=== PATIENT | female | born 1995 | race Caucasian/White ===

== ENCOUNTER 2020-10-09 21:24 | Emergency (ER) | payer OTHER, SELFPAY ==
[2020-10-09 21:52] VITALS: BP 123/84; PULSE 81; RESP 16; TEMP 36.4; O2SAT 98
--- NOTE | 2020-10-09 23:21 | ED.GENADULT ---
HPI - General Adult General Chief complaint: Ear Stated complaint: believes left ear drum burst Time Seen by Provider: 10/09/20 22:51 Source: patient History of Present Illness HPI narrative: Patient is a 25 y/o female complaining left ear pain for 1-2 weeks. She states that she was in [place] swimming 2 weeks ago and developed ear pain shortly after. She went to a [facility] clinic and got Rx for Augmentin and Prednisone for middle ear infection. However, her symptoms have not improved. She has not finished her medications yet. She felt a pop a few days ago and now she has decreased hearing on left side. Related Data Allergies Allergy/AdvReac Type Severity Reaction Status Date / Time No Known Allergies Allergy Verified 10/09/20 21:56 Review of Systems Review of Systems: All systems reviewed & are unremarkable except as noted in HPI and below Constitutional: Constitutional: Denies fever(s) ENT: Reports otalgia and Reports hearing loss Respiratory: Respiratory: Denies cough Exam Const: General: no acute distress and well developed Orientation/consciousness: oriented to person, oriented to place, oriented to time and patient oriented x3 HENMT: Head: normocephalic Ears: external ears normal, Abnormal EAC present erythema on the left and other (some fluid behind left TM suggesting effusion) General nose exam: Normal external nose present Eyes: General: appearance normal, both eyes and all related structures Conjunctivae: conjunctivae normal Skin: General skin exam: normal color and turgor normal Extrem: General: normal to inspection and full ROM Course Consultations Consultation #1: Discussed with Dr. Ramírez, who agrees to follow up with the patient in 24-48 hours. Date: 10/09/20 Time: 23:27 Vital Signs Vital signs: Vital Signs Temperature 36.4 C L 10/09/20 21:52 Pulse Rate 81 10/09/20 21:52 Respiratory Rate 16 10/09/20 21:52 Blood Pressure 123/84 10/09/20 21:52 Pulse Oximetry 98 10/09/20 21:52 Temperature 36.4 C L 10/09/20 21:52 Pulse Rate 81 10/09/20 21:52 Respiratory Rate 16 10/09/20 21:52 Blood Pressure 123/84 10/09/20 21:52 Pulse Oximetry 98 10/09/20 21:52 Medical Decision Making Vital Signs Vital Signs: Vital Signs Temperature 36.4 C L 10/09/20 21:52 Pulse Rate 81 10/09/20 21:52 Respiratory Rate 16 10/09/20 21:52 Blood Pressure 123/84 10/09/20 21:52 Pulse Oximetry 98 10/09/20 21:52 Temperature 36.4 C L 10/09/20 21:52 Pulse Rate 81 10/09/20 21:52 Respiratory Rate 16 10/09/20 21:52 Blood Pressure 123/84 10/09/20 21:52 Pulse Oximetry 98 10/09/20 21:52 Discharge Plan Discharge Clinical Impression: Swimmer's ear of left side, Acute otitis media with effusion of left ear Patient Disposition: Home, Self-Care Condition: Stable Instructions: Antibiotic Form Prescriptions: New volipthd-rmosqhxmt-HM 3.5-10,000-1 mg/mL-unit/mL-% drops,suspension 4 drp EACH EAR Q6H Qty: 10 RF: 0 Follow-up/Referrals: Tejinder Ramírez MD [Physician] - 2 Days PHYSICIAN,AG[employer]ICULT[employer]QUIPMENT MECHANIC [Primary Care Provider] -
== END 2020-10-09 23:41 | disposition home or self-care (01) ==
PROVIDERS: Emergency Provider Emergency Medicine
DX: H60.332 Swimmer's ear, left ear (principal); H65.192 Other acute nonsuppurative otitis media, left ear
CPT/HCPCS: 99283

== ENCOUNTER 2021-04-18 15:59 | Emergency (ER) | payer OTHER, SELFPAY ==
[2021-04-18 16:06] VITALS: BP 121/67; PULSE 104; RESP 16; TEMP 36.6; O2SAT 100
--- NOTE | 2021-04-18 16:23 | ED.URI ---
HPI - URI/Sore Throat General Chief Complaint: Upper Respiratory Infection Stated Complaint: Body aches Time Seen by Provider: 04/18/21 16:24 Source: patient and RN notes reviewed Mode of arrival: ambulatory Limitations: no limitations History of Present Illness HPI Narrative: 25-year-old female who is in second trimester presents with concern for sore throat, body aches, nasal congestion. She denies taking any clzg-wju-csorizg medications. She has not been vaccinated for Covid. She denies any known sick contacts. She denies shortness of breath, fever MD elicited complaint: sore throat and nasal congestion Related Data Allergies Allergy/AdvReac Type Severity Reaction Status Date / Time ibuprofen Allergy Unknown unknown Verified 04/18/21 16:31 Sulfa (Sulfonamide Allergy Unknown unknown Verified 04/18/21 16:31 Antibiotics) Review of Systems Review of Systems: CONSTITUTIONAL: Denies malaise, chills, sweats, or fever. EYES: Denies visual changes, redness, or discharge. ENT: Reports rhinorrhea, congestion, sore throat. Denies sinus pain, otalgia CARDIOVASCULAR: Denies chest pain, palpitations, or edema. RESPIRATORY: Denies cough. Denies dyspnea. GASTROINTESTINAL: Denies abdominal pain, nausea, vomiting, diarrhea SKIN: Denies rash or itching. MUSCULOSKELETAL: Reports myalgia. NEUROLOGIC: Reports headache. All systems reviewed & are unremarkable except as noted in HPI and below PMFSH Social History Social History (Updated 10/12/20 @ 10:35 by Jackie Castañeda MA) Smoking status: Never smoker Alcohol intake: never Substance use: never Comments At time of signature, agree with nursing past medical, surgical, social and family history. There is no relevant family history pertinent to the presenting complaint Exam Narrative: GENERAL: Well-appearing, well-nourished, and in no acute distress. HEAD: Normocephalic EYES: PERRLA, conjunctivae clear ENT: Nares clear, clear discharge. Mucous membranes moist. TM pearly elena with sharp light reflex bilaterally; no tragal tenderness. Oropharynx erythematous without lesions. Tonsils not enlarged and without exudate, no drooling, no hoarseness, no trismus, uvula midline. NECK: Supple. No lymphadenopathy CHEST: Clear to auscultation, breath sounds equal. No wheezing, rhonchi, rales, or stridor. No respiratory distress, speaks in full sentences. HEART: Regular rate and rhythm. No murmur heard. SKIN: Warm, dry, no rash. NEURO: Alert and oriented x3. PSYCH: Normal mood and affect Course Course Emergency Course: Patient is aware of diagnosis, understands and agrees to treatment plan. Anticipatory guidance given. Patient agrees to follow-up as directed and is aware of reasons to seek care at the emergency department. Portions of this record may have been created with voice recognition software Level of Care: Express Care Visit Vital Signs Vital signs: Vital Signs Temperature 98 F 04/18/21 16:06 Pulse Rate 104 H 04/18/21 16:06 Respiratory Rate 16 04/18/21 16:06 Blood Pressure 121/67 04/18/21 16:06 Pulse Oximetry 100 04/18/21 16:06 Temperature 98 F 04/18/21 16:06 Pulse Rate 104 H 04/18/21 16:06 Respiratory Rate 16 04/18/21 16:06 Blood Pressure 121/67 04/18/21 16:06 Pulse Oximetry 100 04/18/21 16:06 Reviewed. MDM - URI/Sore Throat MDM Narrative Medical decision making narrative: Differential diagnosis considered: Miranda virus, strep pharyngitis, allergic rhinitis, upper respiratory tract infection, sinusitis, rhinosinusitis, nasopharyngitis. viral pharyngitis, otitis media, otitis externa, pneumonia, bronchitis, viral cough syndrome, viral syndrome, and influenza. Exam findings show no acute concerns or changes; patient is non-toxic appearing and is in no distress. Patient is appropriate for outpatient treatment and follow-up. Lab Data Attestation: I reviewed the patient's lab results. Critical Care Time Critical Care Time Critical
[2021-04-19 14:36] LABS: SARS-CoV-2 RNA PCR Negative
== END 2021-04-18 16:56 | disposition home or self-care (01) ==
PROVIDERS: Emergency Provider Nurse Practitioner
DX: O99.512 Diseases of the respiratory system complicating pregnancy, second trimester (principal); Z3A.00 Weeks of gestation of pregnancy not specified; J06.9 Acute upper respiratory infection, unspecified; Z20.822 Contact with and (suspected) exposure to COVID-19
CPT/HCPCS: 87081; 87426; 87880; 99213; C9803; G0463; U0003; U0005

== ENCOUNTER 2021-07-25 22:09 | Inpatient (IN) | payer OTHER, SELFPAY ==
[2021-07-25] VITALS (18 sets, daily range): BP systolic 110–137; BP diastolic 60–88; PULSE 80–113; TEMP 37; O2SAT 98–100; BMI 36.6
--- OUTSIDE RECORDS SUMMARY | 2021-07-25 22:31 | XMS_ITS ---
:1995 Author Care Team Providers Name Role Phone Freedom Miranda Primary Care Provider Unavailable Allergies Code Code Name Reaction Severity Status Onset System 5640 RxNorm Ibuprofen Other Moderate Active ? 28139 RxNorm Sulfabenzamide Hives Moderate Active ? Sulfa (Sulfonamide ? ? Deactivated ? Antibiotics) Medications Name Status Start Date Stop Date ? ? csoazvhwhp-feaikzltepcfz-unhiuohb 50 Completed ? 04/18/2021 mg-300 mg-40 mg capsule Active ? Not available Tums Active ? Not available Problems Name Status Onset Date Source ? Active 01/25/2021 ? Procedures Date Name Performed by ? ? Tonsilectomy/adenoids Information not av ailable 12/28/2020 US, Obstetric, Transvaginal [address] [place] [address] ([address]) 01/25/2021 US, Obstetric, Nuchal Translucency Todd [address] [place] [address] ([address]) 03/21/2021 US, Obstetric, 2Nd or 3Rd Trimester Manisha moore [address] [place] [address] ([address]) 03/21/2021 US, Obstetric, Transvagi
--- OUTSIDE RECORDS SUMMARY | 2021-07-25 22:31 | XMS_ITS | Encounter Summary ---
:1995 Author Reason for Visit OB visit 31w5d Assessment and Plan 1. Routine care Discussion Note: None recorded.Patient educational handouts: No information available. Plan of Care Reminders Provider Appointments Induction Juan Guy 07/30/2021 MD Ruth 7:00AM Lab None ? ? recorded. Referral None ? ? recorded. Procedures None ? ? recorded. Surgeries None ? ? recorded. Imaging None ? ? recorded. Medications Name Start Date ? ? ? Tums ? Medications Administered None recorded. Vitals Height Weight BMI Blood Pressure 5 ft 2 in 189 lbs 34.6 kg/m2 114/76 mm[Hg] Results Lab Results None recorded. Allergies Code Code System Name Reaction Severity Onset 5640 RxNorm Ibuprofen Other Moderate ? 75756 RxNorm Sulfabenzamide Hives Moderate ? Problems Name Status Onset Date Source ? Active 01/25/2021 ? Procedures Date Name Performed by ?
--- OUTSIDE RECORDS SUMMARY | 2021-07-25 22:31 | XMS_ITS | Encounter Summary ---
:1995 Author Reason for Visit None recorded. Assessment and Plan 1. Disease of the respiratory sy stem complicating , childbirth and/or the puerperium ? US, obstetric, follow-up Discussion Note: None recorded.Patient educational handouts: No information available. Plan of Care Reminders Provider Appointments Induction Juan Guy 07/30/2021 MD Ruth 7:00AM Lab None ? ? recorded. Referral None ? ? recorded. Procedures None ? ? recorded. Surgeries None ? ? recorded. Imaging [facility] Obstetric, Follow-up 05/23/2021 Medications Name Start Date ? ? ? Tums ? Medications Administered None recorded. Vitals None recorded. Results Lab Results None recorded. Allergies Code Code System Name Reaction Severity Onset 5640 RxNorm Ibuprofen Other Moderate ? 04566 RxNorm Sulfabenzamide Hives Moderate ? Problems Name Status Onset Date Source ? Active 01/25/2021 ? Procedures
--- OUTSIDE RECORDS SUMMARY | 2021-07-25 22:31 | XMS_ITS | Encounter Summary ---
:1995 Author Reason for Visit OB visit Assessment and Plan Assessment Note Patient is ___weeks . Discu ssed plan. 1. Routine care Discussion Note: None recorded.Patient [...] BMI Blood Pressure 5 ft 2 in 199 lbs 36.4 kg/m2 116/80 mm[Hg] Results Lab Results None recorded. Allergies Code Code System Name Reaction Severity Onset 5640 RxNorm Ibuprofen Other Moderate ? 54822 RxNorm Sulfabenzamide Hives Moderate ? Problems Name Status Onset Date Source ? Active 01/25/2021
--- OUTSIDE RECORDS SUMMARY | 2021-07-25 22:31 | XMS_ITS | Encounter Summary ---
:1995 Author Reason for Visit OB visit 33w3d Assessment and Plan 1. Routine care Discussion [...] BMI Blood Pressure 5 ft 2 in 194 lbs 35.5 kg/m2 110/74 mm[Hg] Results Lab Results None recorded. Allergies Code Code System Name Reaction Severity Onset 5640 RxNorm Ibuprofen Other Moderate ? 26805 RxNorm Sulfabenzamide Hives Moderate ? Problems Name Status Onset Date Source ? Active 01/25/2021 ? Procedures Date Name Performed by ?
--- OUTSIDE RECORDS SUMMARY | 2021-07-25 22:31 | XMS_ITS | Encounter Summary ---
[...] ft 2 in 199 lbs 36.4 kg/m2 125/87 mm[Hg] Results Lab Results None recorded. Allergies Code Code System Name Reaction Severity Onset 5640 RxNorm Ibuprofen Other Moderate ? 40879 RxNorm Sulfabenzamide Hives Moderate ? Problems Name Status Onset Date Source ? Active 01/25/2021
--- OUTSIDE RECORDS SUMMARY | 2021-07-25 22:31 | XMS_ITS | Encounter Summary ---
[...] BMI Blood Pressure 5 ft 2 in 203 lbs 37.1 kg/m2 130/88 mm[Hg] Results Lab Results None recorded. Allergies Code Code System Name Reaction Severity Onset 5640 RxNorm Ibuprofen Other Moderate ? 67727 RxNorm Sulfabenzamide Hives Moderate ? Problems Name Status Onset Date Source ? Active
--- OUTSIDE RECORDS SUMMARY | 2021-07-25 22:31 | XMS_ITS | Encounter Summary ---
:1995 Author Reason for Visit None recorded. Assessment and Plan 1. Pre-existing maternal disease complicating ? US, obstetric, follow-up Discussion Note: None recorded.Patient educational handouts: No information available. Plan of Care Reminders Provider Appointments Induction Juan Guy 07/30/2021 MD Ruth 7:00AM Lab None ? ? recorded. Referral None ? ? recorded. Procedures None ? ? recorded. Surgeries None ? ? recorded. Imaging [facility] Obstetric, Follow-up 06/19/2021 Medications Name Start Date ? ? ? Tums ? Medications Administered None recorded. Vitals None recorded. Results Lab Results None recorded. Allergies Code Code System Name Reaction Severity Onset 5640 RxNorm Ibuprofen Other Moderate ? 74607 RxNorm Sulfabenzamide Hives Moderate ? Problems Name Status Onset Date Source ? Active 01/25/2021 ? Procedures Date Name Performed by ?
--- OUTSIDE RECORDS SUMMARY | 2021-07-25 22:31 | XMS_ITS | Encounter Summary ---
:1995 Author Reason for Visit OB visit 29w4d Assessment and Plan 1. Routine care Discussion [...] BMI Blood Pressure 5 ft 2 in 187 lbs 34.2 kg/m2 114/75 mm[Hg] Results Lab Results None recorded. Allergies Code Code System Name Reaction Severity Onset 5640 RxNorm Ibuprofen Other Moderate ? 67721 RxNorm Sulfabenzamide Hives Moderate ? Problems Name Status Onset Date Source ? Active 01/25/2021 ? Procedures Date Name Performed by ?
[2021-07-25] MEDS: LACTATED RINGERS 1,000 ML 125 ML IV CONT ×2 (23:08→23:38)
[2021-07-25 23:14] LABS: Basophils Percent Auto 0.3 % (0.2-1.2); Eosinophils Absolute Auto 0.1 K/mm3 (0-0.3); Eosinophils Percent Auto 0.7 % (0-4.4); Hematocrit 37.5 % (37.0-47.0); Hemoglobin 12.7 g/dL (12.0-15.0); Immature Granulocyte Absolute 0.12 K/mm3 (0.00-0.031); Immature Granulocyte Percent A 0.9 % (0-0.5); Lymphocytes Absolute Auto 1.97 K/mm3 (0.9-3.2); Lymphocytes Percent Auto 15.2 % (18.3-44.2); Mean Corpuscular HGB Conc 33.9 g/dl (32-36); Mean Corpuscular Hemoglobin 30.5 pg (26-34); Mean Corpuscular Volume 90.1 fl (80-100); Mean Platelet Volume 11.3 fl (7.4-10.4); Monocytes Absolute Auto 1.1 K/mm3 (0.1-0.6); Monocytes Percent Auto 8.2 % (2.6-8.5); Neutrophils Absolute Auto 9.7 K/mm3 (1.3-6.7); Neutrophils Percent Auto 74.7 % (45.5-73.1); Platelet Count Result 214 k/mm3 (150-375); Red Blood Count 4.16 M/mm3 (4.2-5.4); Red Cell Distribution Width 15.2 % (11.5-14.5)
--- NOTE | 2021-07-25 23:30 | P.PNAN_ITS ---
Anes - Eval Pre Procedure Procedure: labor epidural Date/Time: 07/25/21 23:30 Preop Diagnosis: pain during labor Pre Op Diagnosis: Leaking fluid Patient Data Age: 26 Gender: F Height: 1.57 m Weight: 91 kg Last Vital Signs Temp 37.0 C 07/25/21 23:08 Pulse 97 07/25/21 23:16 BP 114/86 07/25/21 23:16 Allergies Allergy/AdvReac Type Severity Reaction Status Date / Time ibuprofen Allergy Unknown unknown Verified 04/18/21 16:31 Sulfa (Sulfonamide Allergy Unknown Hives Verified 07/09/21 13:37 Antibiotics) Laboratory Tests 07/25/21 07/25/21 23:01 23:01 WBC 13.0 K/mm3 H K/mm3 (4.5-10.0) RBC 4.16 M/mm3 L M/mm3 (4.2-5.4) Hgb 12.7 g/dL g/dL (12.0-15.0) Hct 37.5 % % (37.0-47.0) MCV 90.1 fl fl (80-100) MCH 30.5 pg pg (26-34) MCHC 33.9 g/dl g/dl (32-36) RDW 15.2 % H % (11.5-14.5) Plt Count 214 k/mm3 k/mm3 (150-375) MPV 11.3 fl H fl (7.4-10.4) Immature Gran % (Auto) 0.9 % H % (0-0.5) Neut % (Auto) 74.7 % H % (45.5-73.1) Lymph % (Auto) 15.2 % L % (18.3-44.2) [place] % (Auto) 8.2 % % (2.6-8.5) Eos % (Auto) 0.7 % % (0-4.4) Baso % (Auto) 0.3 % % (0.2-1.2) Lymph # (Auto) 1.97 K/mm3 K/mm3 (0.9-3.2) [place] # (Auto) 1.1 K/mm3 H K/mm3 (0.1-0.6) Eos # (Auto) 0.1 K/mm3 K/mm3 (0-0.3) Baso # (Auto) 0.0 K/mm3 K/mm3 (0.0-0.1) Abs Immat Gran (auto) 0.12 K/mm3 H K/mm3 (0.00-0.031) Absolute Neuts (auto) 9.7 K/mm3 H K/mm3 (1.3-6.7) Absolute Nucleated RBC 0.0 K/mm3 K/mm3 (0.0-0.012) Nucleated RBC % 0.0 % % (0.0-0.2) RPR Pending Patient hx anesthesia problems: none Family hx anesthesia problems: none Results Review: All pre-operative results and documents have been reviewed as part of the pre-operative evaluation. [facility] Past Medical History Medical History (Updated 07/25/21 @ 23:31 by Cassie Bergeron CRNA) IUP (intrauterine ), incidental Family History Family History (Updated 07/09/21 @ 13:37 by Brown Escobar RN) Mother Kidney stones Hypertension Social History Social History (Updated 10/12/20 @ 10:35 by Jackie Castañeda MA) Smoking status: Never smoker Alcohol intake: never Substance use: never Spiritual care concerns: No Exam Day of Procedure 07/25/21 23:30
[2021-07-26] VITALS (66 sets, daily range): BP systolic 94–159; BP diastolic 53–106; PULSE 25–249; RESP 16–18; TEMP 36.6–37; O2SAT 85–100
[2021-07-26] MEDS: ONDANSETRON INJ 4 MG/2 ML VIAL IV PUSH (00:59)
[2021-07-26] MEDS: OXYTOCIN 30 UNITS/NS 500 ML 30 UNITS/500 ML BAG 999 UNITS IV CONT (02:34)
--- NOTE | 2021-07-26 03:29 | P.HP_ITS ---
Obstetrics - Admit Note Admission Note: record reviewed. No pertinent additions to the history and/or any subsequent changes in the physical findings that are not consistent with the expected course of the were found. admitted to LD for SROM Additions to the history and/or subsequent changes in the physical findings foll ow. None.
--- NOTE | 2021-07-26 03:30 | PM.OBPRVD ---
OB - Delivery Note Procedure Delivery date: 07/26/21 Procedure: vaginal delivery Delivery augmentation: Pitocin Delivery monitor: External FHT and External Uterine Route of delivery: Laceration Description: None Specimen: Yes Quantitative Blood Loss (ml): 84 Anesthesia type: Epidural Disposition: Floor [place] Baby Date of : 07/26/21 Time of : 03:11 Weeks of gestation at delivery: 38 gender: Male Weight (pounds): 6 Weight (ounces): 15 presentation: vertex position: Left Occiput Anterior Placenta delivery description: Spontaneous Cord Vessel Description: 3 Vessels, Clamped/Cut and Delayed Cord Clamping score one minute: 9 score five minutes: 9 Narrative: mother and baby in stable condition, placenta bilobed sent for pathology
--- NOTE | 2021-07-26 04:30 | LDADM ---
This patient, Stefan Vogt, was admitted to Labor/Delivery/Recovery 106 on 07/25/21 at 22:09. Plans for labor, pain management and were discussed with patient. Patient/family oriented to hospital policies and general routines including ID bracelet, bed and alarms, visiting hours, pain management, procedures, bathroom and other care routines, personal items, smoking policy, room service/diet and guest tray routines, security routines, and visiting hours. Patient/Family are encouraged to report perceived risks to care and to ask questions if they do not understand what they are told or what they should do. See OBIX for further documentation.
[2021-07-26] MEDS: WITCH HAZEL 40 PADS 1 PAD TOPICAL (05:26)
[2021-07-26] MEDS: BENZOCAINE 20% AER SPR (*SP) 56 GM CAN 1 SPRAY TOPICAL (05:26)
--- NOTE | 2021-07-26 05:37 | OBPPTRN ---
Patient transferred to post room #290 via wheelchair. Support person present. Oriented to unit, room, information board, rooming in, admission packet and security measures. Patient verbalizes understanding.
[2021-07-26] MEDS: ACETAMINOPHEN 325 MG TABLET 650 MG PO ×3 (05:43→20:04)
--- NOTE | 2021-07-26 08:34 | PM.OBPNVD ---
OB - PN: Subj Subjective Date/time seen: 07/26/21 08:34 Patient comments: no complaints, pain well controlled, incisional pain, tolerating diet and flatus present OB - PN: Obj Data Labs CBC & Chem 7: 07/25/21 23:01 Labs: Laboratory Results - last 24 hr 07/25/21 07/25/21 23:01 23:01 WBC 13.0 H RBC 4.16 L Hgb 12.7 Hct 37.5 MCV 90.1 MCH 30.5 MCHC 33.9 RDW 15.2 H Plt Count 214 MPV 11.3 H Immature Gran % (Auto) 0.9 H Neut % (Auto) 74.7 H Lymph % (Auto) 15.2 L [place] % (Auto) 8.2 Eos % (Auto) 0.7 Baso % (Auto) 0.3 Lymph # (Auto) 1.97 [place] # (Auto) 1.1 H Eos # (Auto) 0.1 Baso # (Auto) 0.0 Abs Immat Gran (auto) 0.12 H Absolute Neuts (auto) 9.7 H Absolute Nucleated RBC 0.0 Nucleated RBC % 0.0 Blood Type B Positive Antibody Screen Negative OB - PN A/P Plan day: 2 Plan: routine care Comments: POD#2 LTCS - no problems, Time Spent With Patient Time: Total time spent is greater than 50% in coordination of care (as documented) at patient's floor/unit and/or counseling patient: Exam Const: General: comfortable, no acute distress and alert Resp: Effort & Inspection: normal respiratory effort Auscultation: no crackles, no rales and no rhonchi Cardio: Rate: regular rate Heart sounds: no click, no murmurs and no rubs GI: Inspection: non-distended GI Palp: No Tenderness to palpation present (GI) Auscultation: normal bowel sounds Other: Incision - CDI Extrem: General: normal to inspection, no pedal edema and no calf tenderness
[2021-07-26] MEDS: MULTIVIT/MIN/PREN/FOL AC/IRON TABLET 1 TAB PO (08:56)
[2021-07-26] MEDS: LANOLIN (LANSINOH) 7.5 GM CREAM 1 APPLIC TOPICAL (08:56)
[2021-07-26] MEDS: DOCUSATE SODIUM 100 MG CAPSULE PO ×2 (08:56→17:35)
--- NOTE | 2021-07-26 09:55 | PC.NURSE ---
[id number] Introductions were made, then consulted with patient to assess needs related to . Mother led the conversation with her experience feeding her so far. Mother works well with her with encouragement. Encouraged understanding of the benefits of skin to skin (unwrapping infant and placing vertically on her chest), responsive feeding and how to watch for early feeding signs, frequency of feeding on demand about every 8-12 times in 24 hours (every 2-3 hours), milk production, duration of feeding, signs of adequate intake/output and how to record on the feeding sheet. Reviewed positioning and ear, shoulder, hip alignment, supporting the breast, asymmetrical latch (off-center), and leading with the chin with a big open side gape. Infant latched optimally to the right breast in football position. Education given to mother of how to visualize suck/swallow ratios and drinking at the breast. Infant was able to maintain latch without discomfort to mother. Nipple care reviewed with optimal latch and good positioning. Reviewed good handwashing when or touching the breast/nipples to prevent infection. Resources used to facilitate learning were used with the visual handouts/ tool/mom and baby guide. Mother voiced understanding of responsive feedings, stimulating with skin to skin, hand expressed colostrum, touch, talking to infant to encourage if it has been 2 -3 hours since the start of the last , to call if does not latch or there is discomfort with . Reported to the primary RN.
--- NOTE | 2021-07-26 11:01 | PC.NURSE ---
[id number] Mother works well with her with encouragement. Reviewed positioning and alignment, supporting breast, off-centered (asymmetrical latch) and leading with the chin with big open wide gape. latched optimally to the right, then breast in football position. Education given to mother of how to visualize suck/swallow ratios and drinking at the breast. Infant was able to maintain latch without discomfort to mother. Nipple care reviewed with optimal latch and good positioning, comfort, healing with warm, wet washcloth to rinse breast, then leave open to air-dry, colostrum may be left on nipples to dry but have clean hands when touching the nipple/breast as needed. Resources used to facilitate learning were used from the visual handout/ tool/mom and baby guide. Mother voiced understanding of the education shared, calling for assistance if the does not latch or if there is discomfort with . Reported to the primary RN.
[2021-07-26 11:06] LABS: Rapid Plasma Reagin Non-Reactive (NonReactive)
--- NOTE | 2021-07-26 15:40 | PC.NURSE ---
1400 - Consulted with patient to assess needs related to . Mother led conversation with her experience with feeding baby so far. Mother works well with her with encouragement and is skin to skin with her . Mother is concerned with milk supply. Reviewed signs of getting good intake with output, jaundice level, and weight. Nipple care reviewed with optimal latch and good positioning, comfort, healing with warm, wet washcloth to rinse breast, then leave open to air-dry, colostrum may be left on nipples to dry but have clean hands when touching the nipple/breast as needed. Mother states she may want to supplement to see how much milk she is getting. Reassured mother at this time to breastfeed 8-12 times in 24 hours with good positioning and optimal latching. Resources used to facilitate learning were used from the mom and baby guide. Mother voiced understanding of the education shared, calling for assistance if the infant does not latch or if there is discomfort with . Reported to the primary RN.
--- NOTE | 2021-07-26 17:30 | PC.NURSE ---
Breast pump provided due to mother request. Instructions given on cleaning, care, usage, there should be no pain, pumping schedule for milk production, collection, and storage of human milk. Parents are encouraged to record pumping schedule on the [feeding sheet/pumping log]. Patient was assessed for correct placement, flange size, to pump for comfort and nipple stretching/stimulation for adequate milk production. Mother voiced understanding of the education shared. Reported to the primary RN.
--- NOTE | 2021-07-26 17:40 | PC.NURSE ---
Nipple shield provided to mother due to sore nipples Reviewed good handwashing, cleaning the nipple shield and application. Discussed with mom the nipple shield precautions, possible complications associated with the risks and benefits. Reviewed practicing with a nipple shield, then without and how to protect the milk supply and production. Mom and baby guide referred to as a resource for using a nipple shield, out-patient services, community resources and when to call a provider. Mom voiced understanding of the importance of hand expression, nipple stimulation and initiating a pumping schedule if continues to nurse with the shield. Reported to the primary RN.
[2021-07-27] MEDS: ACETAMINOPHEN 325 MG TABLET 650 MG PO ×2 (02:00→09:30)
[2021-07-27 06:07] LABS: Hematocrit 34.6 % (37.0-47.0); Hemoglobin 11.2 g/dL (12.0-15.0)
[2021-07-27 08:32] VITALS: BP 124/73; PULSE 86; RESP 14; TEMP 36.1
--- NOTE | 2021-07-27 09:22 | PM.OBPNVD ---
OB - PN: Subj Subjective Date/time seen: 07/27/21 09:22 Patient comments: no complaints baby status: doing well OB - PN: Obj Data Labs CBC & Chem 7: 07/27/21 03:33 Labs: Laboratory Results - last 24 hr 07/25/21 07/27/21 23:01 03:33 Hgb 11.2 L Hct 34.6 L RPR Non-reactive OB - PN A/P Plan day: 1 Plan: routine care and discharge home Time Spent With Patient Time: Total time spent is greater than 50% in coordination of care (as documented) at patient's floor/unit and/or counseling patient: Review of Systems Review of Systems: All systems reviewed & are unremarkable except as noted in HPI and below Exam Const: General: cooperative, healthy appearing and comfortable
--- NOTE | 2021-07-27 09:23 | PM.OBDSVD ---
DS: Admitting Diagnosis Discharge Date 07/27/21 Admitting Diagnosis labor OB - DS: Summary OB Procedures : None OB Procedures Intrapartum: Spontaneous Vag Delivery OB Procedures: : None Time Spent with Patient Time attestation: Total time spent providing and/or coordinating discharge services: DS: Data Data Completed and Pending Pending studies at discharge: Pending at discharge 07/26/21 03:17 Surgical [PTH] Routine Labs on day of discharge: Labs from last 24 hours 07/27/21 07/25/21 03:33 23:01 Hgb 11.2 L Hct 34.6 L RPR Non-reactive Discharge Plan Discharge Attending physician on discharge: Susannah Miranda Discharging Clinician: Nori Young Patient Disposition: Home, Self-Care Activity: pelvic rest Diet: regular Patient Instructions: Antibiotic Form Stand Alone Forms: General Discharge Information Follow-up/Referrals: Nori Young, CNM [Certified Nurse Hollow Handle Knife Assembler] - 4 Weeks Date of admission: 07/25/21 22:09 Primary Care Provider: PHYSICIAN,SHEEPSKIN PICKLER Admitting Provider: Susannah Miranda Attending physician on admission: Susannah Miranda Condition: Stable
[2021-07-27] MEDS: MULTIVIT/MIN/PREN/FOL AC/IRON TABLET 1 TAB PO (09:30)
[2021-07-27] MEDS: WITCH HAZEL 40 PADS 1 PAD TOPICAL (12:55)
--- NOTE | 2021-07-27 12:58 | PC.NURSE ---
Patient viewed the discharge video Mother & Baby Care, The First Two Weeks . Patient was given the opportunity and encouraged to ask questions. Patient verbalized understanding of information shared and has been given the mother/baby guide for home reference.
[2021-07-28 09:36] VITALS: BP 115/64; PULSE 84; RESP 18; TEMP 36.7; O2SAT 100
== END 2021-07-27 13:20 | disposition home or self-care (01) | DRG 560 ==
LOC: ANHLDR 22:43 → ANHOB2 07-26 05:40
PROVIDERS: Advanced Practice Midwife; Admitting Provider Obstetrics & Gynecology; Visit Provider Obstetrics & Gynecology
DX: O80 Encounter for full-term uncomplicated delivery (principal); Z37.0 Single live birth; Z3A.38 38 weeks gestation of pregnancy
CPT/HCPCS: 36415; 85014; 85018; 85025; 86592; 86850; 86900; 86901; 88307; A9270; J2405; J2590; J2795; J7120

== ENCOUNTER 2022-07-03 13:16 | Emergency (ER) | payer OTHER, MEDICAID, SELFPAY ==
[2022-07-03 13:21] VITALS: BP 113/74; PULSE 88; RESP 20; TEMP 36.3; O2SAT 100
--- NOTE | 2022-07-03 13:38 | ED.EAR ---
HPI - Ear Problem General Chief complaint: Ear Stated complaint: EARACHE/HEADACHE/SINUS Time Seen by Provider: 07/03/22 13:33 Source: patient and RN notes reviewed Mode of arrival: ambulatory Limitations: no limitations History of Present Illness HPI Narrative: 27-year-old female who is breast-feeding and also 1st trimester presents with concern for left ear pain reports she has had cold symptoms for several days, she had some pain in her ear and then she lower nose the pain increased. She denies drainage from the ear. Denies fevers. MD Complaint: ear pain Related Data Allergies Allergy/AdvReac Type Severity Reaction Status Date / Time ibuprofen Allergy Unknown unknown Verified 07/03/22 13:41 Sulfa (Sulfonamide Allergy Unknown Hives Verified 07/03/22 13:41 Antibiotics) Review of Systems Review of Systems: CONSTITUTIONAL: Denies malaise, chills, sweats, or fever. EYES: Denies visual changes, redness, or discharge. ENT: Reports rhinorrhea, congestion. Denies sinus pain, and sore throat. Reports left ear pain CARDIOVASCULAR: Denies chest pain, palpitations, or edema. RESPIRATORY: Denies cough. Denies dyspnea. GASTROINTESTINAL: Denies abdominal pain, nausea, vomiting, diarrhea SKIN: Denies rash or itching. MUSCULOSKELETAL: Denies myalgia. NEUROLOGIC: Denies headache. All systems reviewed & are unremarkable except as noted in HPI and below PMFSH Past Medical History Medical History (Updated 07/03/22 @ 13:42 by Megan Alamo NP) IUP (intrauterine ), incidental Family History Family History (Updated 07/09/21 @ 13:37 by Brown Escobar RN) Mother Kidney stones Hypertension Social History Social History (Updated 10/12/20 @ 10:35 by Jackie Castañeda MA) Smoking status: Never smoker Second hand tobacco smoke exposure: No Alcohol intake: never Substance use: never Spiritual care concerns: No Comments At time of signature, agree with nursing past medical, surgical, social and family history. There is no relevant family history pertinent to the presenting complaint Exam Narrative: GENERAL: Well-appearing, well-nourished, and in no acute distress. HEAD: Normocephalic EYES: PERRLA, conjunctivae clear ENT: Nares clear, turbinates edematous, clear discharge. Mucous membranes moist. TM pearly elena with dull light reflex bilaterally; no tragal tenderness. Oropharynx not erythematous without lesions. Tonsils not enlarged and without exudate, no drooling, no hoarseness, no trismus, uvula midline. NECK: Supple. No lymphadenopathy CHEST: Clear to auscultation, breath sounds equal. No wheezing, rhonchi, rales, or stridor. No respiratory distress, speaks in full sentences. HEART: Regular rate and rhythm. No murmur heard. SKIN: Warm, dry, no rash. NEURO: Alert and oriented x3. PSYCH: Normal mood and affect Course Course Emergency Course: Patient is aware of diagnosis, understands and agrees to treatment plan. Anticipatory guidance given. Patient agrees to follow-up as directed and is aware of reasons to seek care at the emergency department. Portions of this record may have been created with voice recognition software Level of Care: Express Care Visit Vital Signs Vital signs: Vital Signs Temperature 97.4 F L 07/03/22 13:21 Pulse Rate 88 07/03/22 13:21 Respiratory Rate 20 07/03/22 13:21 Blood Pressure 113/74 07/03/22 13:21 Pulse Oximetry 100 07/03/22 13:21 Temperature 97.4 F L 07/03/22 13:21 Pulse Rate 88 07/03/22 13:21 Respiratory Rate 20 07/03/22 13:21 Blood Pressure 113/74 07/03/22 13:21 Pulse Oximetry 100 07/03/22 13:21 Reviewed. Medical Decision Making MDM Narrative Medical decision making narrative: Differential diagnosis considered: Miranda virus, strep pharyngitis, allergic rhinitis, upper respiratory tract infection, sinusitis, rhinosinusitis, nasopharyngitis. viral pharyngitis, otitis media, otitis externa, otitis effusion, cerumen i
== END 2022-07-03 13:45 | disposition home or self-care (01) ==
PROVIDERS: Emergency Provider Nurse Practitioner
DX: O99.891 Other specified diseases and conditions complicating pregnancy (principal); Z3A.00 Weeks of gestation of pregnancy not specified; H69.92 Unspecified Eustachian tube disorder, left ear
CPT/HCPCS: 99213; G0463

== ENCOUNTER 2023-01-26 15:28 | Observation (INO) | payer OTHER, MEDICAID, SELFPAY ==
[2023-01-26 17:45] VITALS: RESP 16; TEMP 36.4
--- NOTE | 2023-01-26 19:16 | OBADM ---
This patient, Stefan Vogt, admitted to the OB room Labor/Delivery/Recovery 105 for observation. Patient/family oriented to hospital policies and general routines including ID bracelet, bed and alarms, visiting hours, pain management, procedures, bathroom and other care routines, personal items, smoking policy, room service/diet, and visiting hours. Patient/Family are encouraged to report perceived risks to care and to ask questions if they do not understand what they are told or what they should do.
--- NOTE | 2023-01-28 16:31 | PM.OBTRLD ---
OB - Triage/Final Diagnosis Visit Information Date of evaluation: 01/27/23 Reason for evaluation: threatened labor Comments/Additional reasons for admission: I have assessed the risk for this patient, Stefan Vogt, and determined that she would benefit from observation care.
== END 2023-01-26 19:16 | disposition home or self-care (01) ==
PROVIDERS: Admitting Provider Obstetrics & Gynecology; Visit Provider Obstetrics & Gynecology
DX: O47.9 False labor, unspecified (principal); Z3A.00 Weeks of gestation of pregnancy not specified
CPT/HCPCS: G0378; G0379

== ENCOUNTER 2023-01-31 05:10 | Inpatient (IN) | payer OTHER, MEDICAID, SELFPAY ==
[2023-01-31] VITALS (10 sets, daily range): BP systolic 104–118; BP diastolic 62–80; PULSE 59–88; RESP 16–18; TEMP 36.6–37.7; O2SAT 98; BMI 35.0
--- NOTE | 2023-01-31 05:23 | WPDOBADMIT ---
Obstetrics - Admit Note Admission Note: record reviewed. No pertinent additions to the history and/or any subsequent changes in the physical findings that are not consistent with the expected course of the were found. Admit in active labor, SKYE 9 by rn, anticipate vaginal delivery Additions to the history and/or subsequent changes in the physical findings follow. None.
[2023-01-31 05:45] LABS: Basophils Percent Auto 0.3 % (0.2-1.2); Eosinophils Absolute Auto 0.1 K/mm3 (0-0.3); Eosinophils Percent Auto 0.6 % (0-4.4); Hematocrit 39.3 % (37.0-47.0); Hemoglobin 12.9 g/dL (12.0-15.0); Immature Granulocyte Absolute 0.08 K/mm3 (0.00-0.031); Immature Granulocyte Percent A 0.8 % (0-0.5); Lymphocytes Absolute Auto 1.93 K/mm3 (0.9-3.2); Lymphocytes Percent Auto 19.9 % (18.3-44.2); Mean Corpuscular HGB Conc 32.8 g/dl (32-36); Mean Corpuscular Hemoglobin 29.8 pg (26-34); Mean Corpuscular Volume 90.8 fl (80-100); Mean Platelet Volume 11.7 fl (7.4-10.4); Monocytes Absolute Auto 0.9 K/mm3 (0.1-0.6); Monocytes Percent Auto 9.4 % (2.6-8.5); Neutrophils Absolute Auto 6.7 K/mm3 (1.3-6.7); Platelet Count Result 170 k/mm3 (150-375); Red Blood Count 4.33 M/mm3 (4.2-5.4); Red Cell Distribution Width 14.5 % (11.5-14.5); White Blood Count 9.7 K/mm3 (4.5-10.0)
[2023-01-31] MEDS: OXYTOCIN 30 UNITS/NS 500 ML 30 UNITS/500 ML BAG 999 UNITS IV CONT (05:52)
[2023-01-31] MEDS: fentaNYL CITRATE INJ (*CRX) 100 MCG/2 ML VIAL 50 MCG IV PUSH (05:55)
--- NOTE | 2023-01-31 05:57 | P.PCNOB_ITS ---
OB - Delivery Note Procedure Delivery date: 01/31/23 Procedure: Delivery augmentation: Rupture of Membranes Route of delivery: Episiotomy description: None Laceration Description: None Specimen: No Quantitative Blood Loss (ml): 70 Anesthesia type: None Disposition: Floor [place] Baby Date of : 01/31/23 Time of : 05:44 Weeks of gestation at delivery: 38 gender: Male Weight (pounds): 7 Weight (ounces): 9 presentation: vertex position: Left Occiput Anterior Placenta delivery description: Spontaneous Cord Vessel Description: 3 Vessels and Clamped/Cut score one minute: 9 score five minutes: 9 Narrative: mother and baby in stable condition, technical communicator at bs and evaluated baby, meconium fluid
[2023-01-31] MEDS: OXYTOCIN 30 UNITS/NS 500 ML 30 UNITS/500 ML BAG 125 UNITS IV CONT (06:17)
[2023-01-31] MEDS: MULTIVIT/MIN/PREN/FOL AC/IRON TABLET 1 TAB PO (10:44)
[2023-01-31 14:19] LABS: Rapid Plasma Reagin Non-Reactive (NonReactive)
--- NOTE | 2023-01-31 14:54 | OBPPTRN ---
0826-Patient transferred to post room #282 via wheelchair. Support person present. Oriented to unit, room, information board, rooming in, admission packet and security measures. Patient verbalizes understanding.
[2023-01-31] MEDS: ACETAMINOPHEN 325 MG TABLET 650 MG PO (21:52)
[2023-02-01] VITALS: BP 106/60; PULSE 75; RESP 18; TEMP 36.7; O2SAT 98
[2023-02-01] MEDS: ACETAMINOPHEN 325 MG TABLET 650 MG PO (04:58)
[2023-02-01 05:14] LABS: Hematocrit 38.4 % (37.0-47.0); Hemoglobin 12.3 g/dL (12.0-15.0)
[2023-02-01 08:00] VITALS: BP 113/79; PULSE 82; RESP 16; TEMP 36.7; O2SAT 98
--- NOTE | 2023-02-01 08:17 | PM.OBPNVD ---
OB - PN: Subj Subjective Date/time seen: 02/01/23 08:17 Interval history: pp day 1 doing well request d/c home OB - PN: Obj Data Labs 02/01/23 04:51 Labs: Laboratory Results - last 24 hr 01/31/23 02/01/23 05:32 04:51 Hgb 12.3 Hct 38.4 RPR Non-reactive OB - PN A/P Plan day: 1 Plan: routine care and discharge home Time Spent With Patient Time: Total time spent is greater than 50% in coordination of care (as documented) at patient's floor/unit and/or counseling patient: Review of Systems Review of Systems: All systems reviewed & are unremarkable except as noted in HPI and below Exam Const: General: cooperative, healthy appearing and comfortable Chest: Chest palpation & inspection: normal inspection of the chest Resp: Effort & Inspection: normal respiratory effort Cardio: Rate: regular rate GI: Other: soft Skin: General skin exam: normal color Neuro: General: patient oriented x3
--- NOTE | 2023-02-01 08:37 | PM.OBPNVD ---
OB - PN: Subj Subjective Date/time seen: 02/01/23 08:37 Interval history: pp day 1 doing well request d/c home OB - PN: Obj Data Labs 02/01/23 04:51 Labs: Laboratory Results - last 24 hr 01/31/23 02/01/23 05:32 04:51 Hgb 12.3 Hct 38.4 RPR Non-reactive OB - PN A/P Time Spent With Patient Time: Total time spent is greater than 50% in coordination of care (as documented) at patient's floor/unit and/or counseling patient:
[2023-02-01] MEDS: MULTIVIT/MIN/PREN/FOL AC/IRON TABLET 1 TAB PO (10:26)
--- NOTE | 2023-02-01 12:43 | PC.NURSE ---
0930-Patient was given the opportunity to view the discharge video Mother & Baby Care, The First Two Weeks and to ask questions. Patient declined viewing the video and has been given the mother/baby guide for home reference.
--- NOTE | 2023-02-03 12:53 | P.DS_ITS ---
DS: Admitting Diagnosis Discharge Date 02/01/23 Admitting Diagnosis labor OB - DS: Summary OB Procedures : None OB Procedures Intrapartum: Spontaneous Vag Delivery OB Procedures: : None Time Spent with Patient Time attestation: Total time spent providing and/or coordinating discharge services: Discharge Plan Discharge Attending physician on discharge: Rene Garcia Consulting providers: Nori Young Discharging Clinician: Nori Young Patient Disposition: Home, Self-Care Activity: pelvic rest Diet: regular Discharge Instructions: Education: Mom and Baby Guide Given to: Mother Follow-Up: Call your delivering provider's office for an appointment to be seen in: 4 Weeks Mom and baby should come to the [facility] for the follow-up appointment. Appointment Date/Time: Friday, February 03, 2023 at 8:00 a.m. What to expect at your follow-up visit: Blood Pressure Check Physical Assessment Call [phone] if you are unable to keep your appointment time. BREAST CARE: * Wear a snug supportive bra. * For engorgement discomfort: Breast Feeding: * Apply warm moist washcloths * Express milk as needed to relieve engorgement * Wear loose clothing * For sore nipples: * Identify correct latch-on * Apply warm moist washcloths before and after nursing * Air dry nipples after nursing * May apply Lansinoh cream to nipples EPISIOTOMY/PERINEAL CARE: * Until bleeding stops, use your zahra bottle after urinating * Change your pad frequently throughout the day * You may take sitz baths several times a day (fill your bathtub with warm water and soak for 20 minutes.) Do NOT bathe in the water * No tub baths until seen by your physician - You may shower ACTIVITY: * Rest as much as possible. * Do not exercise or lift anything heavier than your baby (such as laundry or other children.) * Avoid stairs or driving as much as possible. * Do not put anything into the vagina. No douching, tampons, or sexual activity until seen by physician. NOTIFY PHYSICIAN IF YOU HAVE ANY QUESTIONS OR IF ANY OF THE FOLLOWING SYMPTOMS OCCUR: * If your vaginal bleeding becomes foul smelling. * If your vaginal bleeding becomes more heavy than a period or if your bleeding changes from pink to bright red. However, you may pass an occasional walnut- sized clot once or twice for the first week . * If you experience a sharp, shooting pain in you calves. * If you discover a hard, reddened area on your breast or if you experience flu- like symptoms. DIET: * Eat regular, well-balanced meals. * Drink plenty of fluids daily. If , drink to thirst. Stand Alone Forms: General Discharge Information Follow-up/Referrals: Nori Young CNM [Certified Nurse Studio Data Analyst] - 4 Weeks Discharge Medications: Continued Classic 28 mg iron- 800 mcg Tablet 1 tablet PO DAILY Date of admission: 01/31/23 05:10 Primary Care Provider: PHYSICIAN,NUCLEAR WEAPONS MECHANICAL SPECIALIST Admitting Provider: Susannah Miranda Attending physician on admission: Susannah Miranda Condition: Stable
--- NOTE | 2023-02-03 16:16 | PM.OBTRLD ---
OB - Triage/Final Diagnosis Visit Information Date of evaluation: 01/31/23 Reason for evaluation: threatened labor Comments/Additional reasons for admission: I have assessed the risk for this patient, Stefan Vogt, and determined that she would benefit from observation care. Evaluation Laboratory results: Laboratory Tests 01/31/23 02/01/23 05:32 04:51 WBC 9.7 RBC 4.33 Hgb 12.9 12.3 Hct 39.3 38.4 MCV 90.8 MCH 29.8 MCHC 32.8 RDW 14.5 Plt Count 170 MPV 11.7 H Immature Gran % (Auto) 0.8 H Neut % (Auto) 69.0 Lymph % (Auto) 19.9 [place] % (Auto) 9.4 H Eos % (Auto) 0.6 Baso % (Auto) 0.3 Lymph # (Auto) 1.93 [place] # (Auto) 0.9 H Eos # (Auto) 0.1 Baso # (Auto) 0.0 Abs Immat Gran (auto) 0.08 H Absolute Neuts (auto) 6.7 Absolute Nucleated RBC 0.0 Nucleated RBC % 0.0 RPR Non-reactive Blood Type B Positive Antibody Screen Negative
== END 2023-02-01 12:35 | disposition home or self-care (01) | DRG 807 ==
LOC: ANHLDR 06:11 → ANHOB2 08:32
PROVIDERS: Advanced Practice Midwife; Admitting Provider Obstetrics & Gynecology; Visit Provider Obstetrics & Gynecology
DX: O62.3 Precipitate labor (principal); Z37.0 Single live birth; Z3A.38 38 weeks gestation of pregnancy; O77.0 Labor and delivery complicated by meconium in amniotic fluid
CPT/HCPCS: 36415; 85014; 85018; 85025; 86592; 86850; 86900; 86901; A9270; J2590; J3010

== ENCOUNTER → 2023-03-21 10:31 | Outpatient (CLI) | payer MEDICAID, SELFPAY ==
--- NOTE | ~2023-03-21 | US_ITS ---
EXAMINATION: US breast RT limited HISTORY: Acute mastitis, fever, mastodynia TECHNIQUE: Targeted right breast ultrasound is performed in the area of clinical concern. FINDINGS: No suspicious cystic or solid mass is identified. There is no evidence of breast abscess. IMPRESSION: No sonographic correlate for the patient's symptoms. BI-RADS Category 1: Negative Reviewed, dictated and finalized at location A. TICE OR STUDENT TEACHER
== END ==
PROVIDERS: PCP Nurse Practitioner; Visit Provider Nurse Practitioner
DX: N61.0 Mastitis without abscess (principal)
CPT/HCPCS: 76642